=== PATIENT | female | born 1940 | race African-American/Black ===

== ENCOUNTER 2021-03-24 19:20 | Emergency (ER) | payer MEDICAID, SELFPAY ==
[2021-03-24 19:22] VITALS: BP 184/141; PULSE 73; RESP 18; TEMP 36.5; O2SAT 100; BMI 24.7
[2021-03-24 19:27] VITALS: BP 158/89
--- NOTE | 2021-03-24 19:56 | CT_ITS ---
STUDY: CT BRAIN WITHOUT CONTRAST REASON FOR EXAM: Female, 80 years old. Altered mental status TECHNIQUE: Transaxial CT imaging of the brain was performed without administration of intravenous contrast material. Individualized dose optimization techniques were used for this CT. COMPARISON: None FINDINGS: Normal calvarium. Normal soft tissues. Normal size ventricles and extra-axial spaces for the patient''s age. Normal white matter tracts of the cerebral hemispheres. There are small punctate calcifications of the basal ganglia which are seen in the aging brain as a normal variant. Normal brainstem. Normal cerebellum. There is no intracranial hemorrhage. There are no findings of an acute ischemic infarction. Normal visualized paranasal sinuses. ASPECTS 10 CT/Brain/Head without Contrast IMPRESSION: There are no acute intracranial findings. Electronically Signed: Raúl Orlando MD at 20:16 EST ,
--- NOTE | 2021-03-24 19:56 | EKG12_ITS ---
Test Reason : DYSRHYTHMIA Blood Pressure : / mmHG Vent. Rate : 065 BPM Atrial Rate : 065 BPM P-R Int : 136 ms QRS Dur : 086 ms QT Int : 432 ms P-R-T Axes : 058 -27 042 degrees QTc Int : 449 ms Normal sinus rhythm Nonspecific ST abnormality Abnormal ECG Confirmed by NUZHAT DELGADILLO, KRYSTLE ([id number]), field map editor TRINY CHANDLER ([id number]) on 03/25/2021 11:09:33 AM Referred By: HARMAN Confirmed By:KRYSTLE NOLAND MD
--- NOTE | 2021-03-24 19:57 | EX.ED.DYSGE1 ---
HPI History of Present Illness Chief Complaint: Syncope Narrative Narrative: 80-year-old female presenting with an episode of staring. Apparently she was with her family and for about 30 seconds was staring off. After 30 seconds she came back to her baseline and then she was seen staring off again. When she came back to baseline she stated that she had to go to the bathroom and was talking while her legs were sticking out while sitting in a chair. She was told not to get up because she did not have her legs under her. Patient states she remembers this episode. Her family states that she did look like she was sweating after these episodes. They thought that she was having a seizure but they do not describe any seizure-like activity. She does not have a headache currently. She is at her baseline. There is no report of slurred speech, facial droop, inability to move extremities. Prior to leaving the house she was able to get up and ambulate across the room. She has no history of falls or trauma to her head. Per the patient who is a poor informant she states she thinks she had a seizure a long time ago but has not been on medications. Family states they do not know of any medications for seizures. Patient does not report any chest pain or shortness of breath. No nausea or vomiting. No diarrhea. Patient has not had any urinary symptoms. Family states that she does not get urinary tract infections normally. She has not had a fever, chills, cough since she recovered from Covid 2 weeks. [facility] Medical History Rectal bleeding Seizures Home Medications amlodipine 10 mg PO DAILY 02/17/14 [History Last Taken 02/27/14] Bisoprol/Hydrochlorothiazide [Ziac 10/6.25 Mg (Beta Jesika)] 1 tab PO DAILY 02/28/14 [History Last Taken 02/27/14] pantoprazole 40 mg PO DAILY #30 tablet 03/03/14 [Rx Last Taken Unknown] lisinopril 10 mg PO DAILY 03/24/21 [History Last Taken Unknown] Allergy/AdvReac Type Severity Reaction Status Date / Time No Known Allergies Allergy Verified 03/24/21 19:25 Social History Smoking Status: Former smoker ROS ROS ED Constitutional Constitutional ED: Reports sweats; Denies chills or fever(s) Eyes Eyes: Denies blurry vision or diplopia ENT ENT ED: Denies rhinorrhea or sore throat Cardiovascular Cardiovascular: Denies chest pain or palpitations Respiratory/Chest Respiratory/Chest: Denies cough or dyspnea Gastrointestinal Gastrointestinal: Denies abdominal pain, nausea or vomiting Genitourinary Genitourinary ED: Denies dysuria or hematuria Musculoskeletal Musculoskeletal: Denies arthralgias or myalgias Integumentary Denies rash Neurologic Neurologic: Denies headache(s) EXAM Physical Exam Const Vital Signs: 03/24/21 19:22 03/24/21 19:27 03/24/21 19:29 Temperature 97.7 F L Temperature Source Temporal Pulse Rate 73 Respiratory Rate 18 Respiratory Effort Normal Respiratory Pattern Normal Blood Pressure 184/141 H 158/89 H Blood Pressure Mean 155 112 Pulse Ox 100 Oxygen Delivery Method Room Air 03/24/21 22:07 Temperature Temperature Source Pulse Rate 72 Respiratory Rate 19 H Respiratory Effort Respiratory Pattern Blood Pressure 141/72 H Blood Pressure Mean 95 Pulse Ox 99 Oxygen Delivery Method Room Air General Appearance ED: NAD; Negative for pallor HEENT Reports dry mucous membranes Negative for trauma Mouth ED: Yes dry mucous membranes Mouth: dry mucous membranes Eyes PERRL and EOMs intact bilaterally General Eye ED: Negative for pale conjunctiva or scleral icterus Chest Wall inspection of chest normal and palpation of chest normal Resp normal respiratory effort and clear to auscultation bilaterally Cardio regular rate and regular rhythm GI normal to inspection, nondistended, normoactive bowel sounds Neuro oriented x3, CN's II-XII intact bilaterally and no sensory deficits noted Sensorium / Orientation: alert Motor Exam: strength 5/5 throughout Psych mental status grossly normal Skin no rashes or lesions noted General Skin Exam: Negative for jaundice or pallor MDM MDM MDM Narrative Medical decision making narrative: Patient presenting with a couple of episodes of confusion while at the dinner table. From the description it does not sound like a seizure, and she has no symptoms of stroke. She is alert and oriented in the emergency room. Her family thinks she is at baseline. Patient reports no pain anywhere. She does look a little bit dehydrated. Family does report that the whole household recently got over Covid. They reported that she was eating and drinking normally. EKG was performed on arrival which shows a sinus rhythm with a ventricular to 65 bpm without sign of ischemic change or dysrhythmia. CBC shows that she is leukopenic and lymphopenic. This is likely due to her recent Covid exposure. Her hemoglobin is 10.1 and on 03/03/2021 this was 10.2. Platelets are normal at 265. Creatinine is elevated at 1.6 today and the GFR is 38. On 03/04/2021 her creatinine was 1.08 and her GFR was 59. Patient was given a liter of normal saline. CT of the brain is negative for acute intercranial process. I discussed the case with Dr. Singletary who is on-call for Dr. Suggs to discuss her elevated blood pressure at 158/89 as well as her blood pressure medications to see if he wanted to change these why she has an BRENDA. He recommended to continuing them and to have her hydrate well. She will follow-up in office for repeat BMP. This was discussed with the family and they are comfortable with this. Patient was ambulated in the ED and was stable. Impression: 1. Dehydration 2. Acute kidney injury 3. Near syncope Lab Data Attestation: I reviewed the patient's lab results. Labs: Laboratory Results - last 24 hr 03/24/21 03/24/21 03/24/21 19:25 19:25 21:20 WBC 4.1 L RBC 4.50 Hgb 10.1 L Hct 33.0 L MCV 73.3 L MCH 22.4 L MCHC 30.6 L RDW Std Deviation 44.5 H RDW Coeff of Shelly 16.7 H Plt Count 265 MPV 11.3 Immature Gran % (Auto) 0.200 Neut % (Auto) 43.5 L Lymph % (Auto) 46.8 H [place] % (Auto) 6.8 Eos % (Auto) 2.2 Baso % (Auto) 0.5 Absolute Neuts (auto) 1.8 L Absolute Lymphs (auto) 1.92 Nucleated RBC % 0 Sodium 137 Potassium 4.1 Chloride 108 H Carbon Dioxide 23.0 Anion Gap 6 BUN 46 H Creatinine 1.68 H Estim Creat Clear Calc 21.48 Est GFR (MDRD) Af Amer 38 L Est GFR (MDRD) Non-Af 31 L BUN/Creatinine Ratio 27.4 H Glucose 145 H Calcium 8.6 Total Bilirubin 0.20 AST 17 ALT 16 Alkaline Phosphatase 124 H Troponin I High Sens 12 Total Protein 8.2 Albumin 3.3 Globulin 4.9 H Albumin/Globulin Ratio 0.7 L Urine Color Yellow Urine Clarity Clear Urine pH 5.0 Ur Specific [place] 1.020 Urine Protein 30 H Urine Glucose (UA) Normal Urine Ketones Negative Urine Occult Blood 10 H Urine Nitrite Negative Urine Bilirubin Negative Urine Urobilinogen Normal Ur Leukocyte Esterase 25 H Urine RBC 0-5 SEEN Urine WBC 0 SEEN Ur Squamous Epith Cells 0 SEEN Urine Bacteria 1+ Urine Mucus 0 SEEN Radiography Diagnostic Testing: Clinical Impression(s) from Imaging Studies Brain CT 03/24/21 19:56 IMPRESSION: There are no acute intracranial findings. Electronically Signed: Raúl Orlando MD at 20:16 EST , Chest X-Ray 03/24/21 20:07 IMPRESSION: There are no acute findings. Electronically Signed: Raúl Orlando MD at 20:16 EST , Discharge Plan Triage Chief Complaint: Syncope ED Provider: Thomas Rosa Dx/Rx/DC Orders Instructions: ED Dehydration (Adult), ED Near-Fainting, Uncertain Cause Prescriptions: No Action amlodipine 10 MG tablet 10 mg PO DAILY RF: 0 Bisoprol/Hydrochlorothiazide [Ziac 10/6.25 Mg (Beta Jesika)] 1 TAB tablet 1 tab PO DAILY RF: 0 pantoprazole 40 MG tablet 40 mg PO DAILY Qty: 30 RF: 0 lisinopril 10 mg tablet 10 mg PO DAILY RF: 0 Primary Care Provider: Damir Suggs Referrals: Damir Suggs MD [Primary Care Provider] - Disposition Disposition: Home, Self Care
--- NOTE | 2021-03-24 20:07 | RAD_ITS ---
STUDY: XR Chest 1 View 03/24/2021 8:00 PM REASON FOR EXAM: Female, 80 years old. CHEST PAIN Altered mental status COMPARISON: None TECHNIQUE: XR Chest 1 View FINDINGS: There is no demonstrated pleural abnormality. Enlarged heart size. Normal mediastinum. Normal braydon. Prominent appearing increased interstitial lung markings. Normal visualized pulmonary arteries. There is atherosclerotic calcification of the aortic arch with tortuosity. There are diffuse degenerative changes of the visualized thoracic spine. There is degenerative osteoarthritis of the bilateral shoulders. There is no demonstrated abnormality of the visualized soft tissue structures of the upper abdomen. RAD/Chest 1 View (Portable) IMPRESSION: There are no acute findings. Electronically Signed: Raúl Orlando MD at 20:16 EST ,
[2021-03-24 20:20] LABS: Absolute Lymphocyte Count 1.92 X10^3/uL (0.83-4.51); Absolute Neutrophil Count 1.8 X10^3/uL (2.0-7.7); Basophil# 0.02 X10^3/uL; Basophil% 0.5 % (0-1); Eosinophil# 0.09 X10^3/uL; Eosinophils% 2.2 % (0-5); Hemoglobin 10.1 g/dL (12.0-15.0); Lymphocyte # 1.92 X10^3/ul (0.83-4.51); Lymphocyte % 46.8 % (19-41); Mean Corp Hgb Conc 30.6 g/dL (32-36); Mean Corpuscular Hgb 22.4 pg (27.0-32.0); Mean Corpuscular Volume 73.3 fL (81-99); Mean Platelet Vol. 11.3 fl (6.2-12.0); Monocyte# 0.28 X10^3/uL; Monocyte% 6.8 % (0-10); NRBC Flagged by Analyzer 0 % (0-5); Neutrophil # 1.78 X10^3/uL (2.7-7.7); Neutrophil % 43.5 % (47-70); Platelet Count 265 K/mm3 (150-450); RBC Distribution Width CV 16.7 % (11.6-14.6); RBC Distribution Width SD 44.5 fl (35.1-43.9); White Blood Count 4.1 K/mm3 (4.4-11.0)
[2021-03-24 21:04] LABS: ALB/GLOB Ratio 0.7 RATIO (0.9-2.4); AST(SGOT) 17 U/L (15-37); Alanine Aminotransfer ALT/SGPT 16 U/L (13-56); Albumin, Serum 3.3 g/dL (3.2-5.0); Alkaline Phosphatase 124 U/L (45-117); Anion Gap 6 (5-15); BUN 46 mg/dL (7-18); BUN/Creat Ratio 27.4 RATIO (10-20); Calcium,Total 8.6 mg/dL (8.5-10.1); Chloride 108 mmol/L (98-107); Creatinine, Serum 1.68 mg/dL (0.55-1.02); EST Glomerular Filtration Rate 31 mL/min (>60); Est Glom Filt Rate - Afr Amer 38 mL/min (>60); Estimated Creatinine Clearance 21.48 ml/min; Globulin 4.9 g/dL (2.2-4.2); Glucose 145 mg/dL (74-106); Potassium 4.1 mmol/L (3.5-5.1); Protein, Total 8.2 g/dL (6.4-8.2); Sodium Level 137 mmol/L (136-145); Troponin-I HS 12 pg/mL (3.0-54.0)
[2021-03-24] MEDS: 0.9% Normal Saline 1,000 ML 999 ML IV (21:17)
[2021-03-24 21:29] LABS: Mucous, Urine 0 SEEN /hpf (<or=2+); Squamous Epithelial Cells - UA 0 SEEN /hpf (5-10); White Blood Cells 0 SEEN /hpf (0-5)
[2021-03-24 21:34] LABS: Color, Urine Yellow (Yellow); Glucose, Dipstick Normal (Normal); Ketone-Dipstick Negative (Negative); Leukocyte Esterase-Dipstick 25 /ul (Negative); Nitrite-Dipstick Negative (Negative); Occult Blood-Urine 10 /ul (Negative); Protein-Dipstick 30 mg/dl (Negative); Urine Bilirubin Dipstick Negative (Negative); Urine Clarity Clear (Clear); Urine Urobilinogen Normal (Normal)
[2021-03-24 21:42] LABS: Bacteria 1+ /hpf (None Seen); Red Blood Cells-Urine 0-5 SEEN /hpf (0-5)
[2021-03-24 22:07] VITALS: BP 141/72; PULSE 72; RESP 19; O2SAT 99
== END 2021-03-24 23:37 | disposition home or self-care (01) ==
PROVIDERS: Emergency Provider Student in an Organized Health Care Education/Training Program; PCP Family Medicine; Visit Provider Student in an Organized Health Care Education/Training Program
DX: N17.9 Acute kidney failure, unspecified (principal); R55 Syncope and collapse; E86.0 Dehydration; Z87.891 Personal history of nicotine dependence; Z20.822 Contact with and (suspected) exposure to COVID-19; Z79.899 Other long term (current) drug therapy; Z86.16 Personal history of COVID-19
CPT/HCPCS: 70450; 71045; 80053; 81001; 84484; 85025; 87086; 87088; 93005; 96360; 99285; J7030; A4216

== ENCOUNTER 2024-05-19 13:52 | Emergency (ER) | payer MEDICAID, SELFPAY ==
[2024-05-19] VITALS (11 sets, daily range): BP systolic 156–234; BP diastolic 86–137; PULSE 57–84; RESP 16–23; TEMP 36.6; O2SAT 99–100; BMI 22.2
--- NOTE | 2024-05-19 14:13 | RAD_ITS ---
PROCEDURE: CHEST 1 VIEW (PORTABLE) 05/19/2024 REASON FOR EXAM: HYPERTENSION TECHNIQUE: Frontal view of the chest. COMPARISON: None. FINDINGS: Hardware: None. Heart: Mildly enlarged. Lungs: Clear. Bones: Unremarkable. Other: RAD/Chest 1 View (Portable) IMPRESSION: No acute process detected. Reading [facility]
--- NOTE | 2024-05-19 14:13 | CT_ITS ---
PROCEDURE: BRAIN/HEAD WITHOUT CONTRAST 05/19/2024 REASON FOR EXAM: HYPERTENSIVE URGENCY TECHNIQUE: Head CT without intravenous contrast. Coronal and Sagittal reconstruction series were provided. One or more dose reduction techniques were used (e.g., Automated exposure control, adjustment of the mA and/or kV according to patient size, use of iterative reconstruction technique. RADIATION DOSE SUMMARY: CTDlvol: 44.99 mGy DLP: 796.11 mGycm COMPARISON: No relevant prior. FINDINGS: Cerebrum: Physiologic basal ganglial calcifications. No intraparenchymal hemorrhage. No abnormal areas of encephalomalacia. No mass effect or midline shift. Jaramillo-white matter differentiation is normal. Ventricles and cisterns: Appropriate size for patient's age. Extra-axial fluid: Unremarkable. Posterior fossa: Unremarkable cerebellum. No abnormalities involving the brainstem. Paranasal sinuses: Moderate to marked mucoperiosteal thickening involving the right maxillary sinus. Vasculature: Unremarkable. Mastoid air cells: Normal. Calvarium: Unremarkable. Soft tissues: Unremarkable. CT/Brain/Head without Contrast IMPRESSION: 1. No acute intracranial abnormalities. 2. Physiologic basal ganglia calcifications. 3. Right maxillary sinus inflammation. Reading Location: [place] [id number]
--- NOTE | 2024-05-19 14:14 | EKG12_ITS ---
Test Reason : Blood Pressure : */* mmHG Vent. Rate : 65 BPM Atrial Rate : 65 BPM P-R Int : 112 ms QRS Dur : 156 ms QT Int : 480 ms P-R-T Axes : 62 -70 27 degrees QTcB Int : 499 ms Normal sinus rhythm Biatrial enlargement Right bundle branch block Left anterior fascicular block Bifascicular block Minimal voltage criteria for LVH, may be normal variant ( R in aVL ) Septal infarct , age undetermined Abnormal ECG Confirmed by RAFAEL DELGADILLO, RACHEL ([id number]), editor farm journal TRINY CHANDLER ([id number]) on 05/20/2024 8:08:57 AM Referred By: MAYRA Confirmed By: RACHEL HALL MD
--- NOTE | 2024-05-19 14:15 | EX.ED.DYSGE1 ---
HPI History of Present Illness Chief Complaint: Hypertension Informant: patient and friend Narrative Narrative: 83-year-old female presenting to the emergency room with the chief complaint of hypertension. Familywho accompanies her states that she has been taking her blood pressure every few days and has noticed it has been around the 180 vero. Patient states that she is only taking amlodipine and believes it is 20 mg a day. She had a primary care appointment today was referred to the emergency because of hypertension. She denies any symptoms related to her hypertension. She denies headache chest pain vision changes shortness of breath leg swelling change in urination. There is reported by family that the son who is one of her primary caregivers recently and the sister is now assuming the role of caring for her. [facility] Medical History (Updated 05/19/24 @ 17:[address] Marvin Walker DO) Hypertension Rectal bleeding Seizures Home Medications ?Medication ?Instructions ?Recorded ?Last Taken ?Type pantoprazole 40 mg tablet,delayed 40 mg PO DAILY ##30 03/03/14 Unknown Rx release lisinopril 40 mg tablet 40 mg PO DAILY 05/19/24 Unknown History Allergy/AdvReac Type Severity Reaction Status Date / Time No Known Allergies Allergy Verified 05/19/24 13:55 Social History Smoking Status: Former smoker ROS ROS ED Constitutional Constitutional ED: Denies chills, fever(s) or weight loss Eyes Eyes: Denies change in vision or diplopia ENT ENT ED: Denies ear pain, rhinorrhea or sore throat Cardiovascular Cardiovascular: Denies chest pain, orthopnea, palpitations or racing heartbeat Respiratory/Chest Respiratory/Chest: Denies cough, dyspnea or orthopnea Gastrointestinal Gastrointestinal: Denies abdominal pain, diarrhea, nausea or vomiting Genitourinary Genitourinary ED: Denies dysuria, hematuria or urinary frequency Musculoskeletal Musculoskeletal: Denies arthralgias, back pain or myalgias Integumentary Denies abscess or rash Neurologic Neurologic: Denies headache(s), paresthesias or weakness Psychiatric Psychiatric: Denies anxiety, depression, suicidal ideation or suicidal thoughts Endocrine Endocrinology: Denies polydipsia, polyphagia or polyuria Allergic/Immunologic Allergic/Immunologic ED: Denies mouth swelling, tongue swelling or urticaria EXAM Physical Exam Const Vital Signs: 05/19/24 13:53 05/19/24 14:29 05/19/24 14:31 Temperature 97.8 F Temperature Source Temporal Pulse Rate 76 Respiratory Rate 18 Respiratory Effort Normal Non-Labored Respiratory Pattern Normal Blood Pressure 234/117 H Blood Pressure Mean 156 Pulse Ox 100 99 Oxygen Delivery Method Room Air 05/19/24 14:45 05/19/24 15:00 05/19/24 15:05 Temperature Temperature Source Pulse Rate 84 69 Respiratory Rate 21 H 16 Respiratory Effort Respiratory Pattern Blood Pressure 156/137 H Blood Pressure Mean 145 Pulse Ox 99 Oxygen Delivery Method 05/19/24 15:15 05/19/24 15:30 05/19/24 15:37 Temperature Temperature Source Pulse Rate 64 65 66 Respiratory Rate 16 19 H 22 H Respiratory Effort Respiratory Pattern Blood Pressure 184/90 H Blood Pressure Mean 115 Pulse Ox 99 99 100 Oxygen Delivery Method Room Air 05/19/24 15:46 05/19/24 16:00 05/19/24 16:15 Temperature Temperature Source Pulse Rate 79 57 L 59 L Respiratory Rate 23 H 18 18 Respiratory Effort Respiratory Pattern Blood Pressure 188/86 H Blood Pressure Mean 116 Pulse Ox 100 100 99 Oxygen Delivery Method Room Air Positive well nourished and well developed General Appearance ED: well developed and NAD HEENT Reports normocephalic, head/scalp atraumatic and moist mucous membranes Eyes PERRL and EOMs intact bilaterally Neck no lymphadenopathy, supple and no JVD Resp normal respiratory effort and clear to auscultation bilaterally Cardio regular rate, regular rhythm and no murmurs GI normal to inspection, nondistended, normoactive bowel sounds and non-tender Palpation: soft Back/Spine no CVA tenderness and normal ROM Extremity normal to inspection General Extremety ED: Negative for edema General Extremity: Negative for edema Neuro oriented x3 and CN's II-XII intact bilaterally Neuro Narrative: NIH 0 Sensorium / Orientation: alert Motor Exam: strength 5/5 throughout Psych mental status grossly normal Mood & Affect: Negative for depressed or tearful Skin no rashes or lesions noted and no wounds MDM MDM MDM Narrative Medical decision making narrative: Patient presenting with asymptomatic hypertension. Differential diagnosis would include medical noncompliance renal disease coronary strain congestive heart failure intracranial hemorrhage/pressure I discussed the case with social work and asked them to come by to visit with the patient and her sister. My independent interpretation the chest x-ray is no acute process. CT of the brain was obtained and read by radiology reviewed by myself. This does not demonstrate acute findings. Patient's blood work is obtained. 2 sets of cardiac enzymes rule out for acute coronary syndrome. There is noted to be some increased protein in the urine. Patient received a dose of lisinopril as well as clonidine. We had an appropriate decrease in blood pressure currently 183/86. Patient was given instructions to hop picker her medications at [facility]. Her sister who is helping care for her is able to pick them up tomorrow. History & Record Review Discussion w/independent historian: Patient and Family Lab Data Attestation: I reviewed the patient's lab results. Labs: Laboratory Results - last 24 hr 05/19/24 05/19/24 05/19/24 14:25 14:45 16:25 WBC 4.9 RBC 4.29 Hgb 9.8 L Hct 31.8 L MCV 74.1 L MCH 22.8 L MCHC 30.8 L RDW Std Deviation 44.2 H RDW Coeff of Shelly 16.6 H Plt Count 249 MPV 10.8 Immature Gran % (Auto) 0.200 Neut % (Auto) 56.7 Lymph % (Auto) 35.8 [place] % (Auto) 5.1 Eos % (Auto) 1.8 Baso % (Auto) 0.4 Absolute Neuts (auto) 2.8 Absolute Lymphs (auto) 1.77 Nucleated RBC % 0 Sodium 139 Potassium 4.1 Chloride 108 Carbon Dioxide 19.8 L Anion Gap 12 BUN 28 H Creatinine 1.35 H Est GFR (MDRD) Non-Af 39 L BUN/Creatinine Ratio 20.7 H Glucose 85 Calcium 9.0 Total Bilirubin 0.34 AST 22 ALT 15 Alkaline Phosphatase 90 Troponin T High Sens 31 H Troponin T Hi Sens 2 Hr 29 H Total Protein 7.3 Albumin 3.9 Globulin 3.4 Albumin/Globulin Ratio 1.1 Urine Color Yellow Urine Clarity Clear Urine pH 6.0 Ur Specific [place] 1.010 Urine Protein 100 H Urine Glucose (UA) Normal Urine Ketones Negative Urine Occult Blood Negative Urine Nitrite Negative Urine Bilirubin Negative Urine Urobilinogen Normal Ur Leukocyte Esterase Negative Urine RBC 0 SEEN Urine WBC 0 SEEN Ur Squamous Epith Cells 0 SEEN Urine Bacteria 0 SEEN Urine Mucus 0 SEEN Radiography Diagnostic Testing: Clinical Impression(s) from Imaging Studies Brain CT 05/19/24 14:13 IMPRESSION: 1. No acute intracranial abnormalities. 2. Physiologic basal ganglia calcifications. 3. Right maxillary sinus inflammation. Reading Location: [facility] Chest X-Ray 05/19/24 14:13 IMPRESSION: No acute process detected. Reading Location: [facility] EKG Initial EKG: Attestation: I personally reviewed and interpreted this EKG as follows: Comments: Normal sinus rhythm ventricular to 65 bpm. Management Discussion w/another healthcare provider: target worker/Case management (Liane) Discharge Plan Triage Chief Complaint: Hypertension ED Provider: Marvin Walker Dx/Rx/DC Orders Clinical Impression: Hypertensive urgency Instructions: ED High Blood Pressure Hypertension Prescriptions: No Action pantoprazole 40 MG tablet 40 mg PO DAILY Qty: 30 0RF Patient Comments: ACID REFLUX/ULCERS lisinopril 40 mg tablet 40 mg PO DAILY Primary Care Provider: Damir Suggs Referrals: Damir Suggs MD [Primary Care Provider] - [facility] appointment Activity Restrictions/Additional Instructions: Your medications are available for pickup at [facility] [address], [place] [address]. Print Language: Lithuanian Disposition Disposition: Home, Self Care
[2024-05-19 14:35] LABS: Absolute Lymphocyte Count 1.77 X10^3/uL (0.83-4.51); Absolute Neutrophil Count 2.8 X10^3/uL (2.0-7.7); Basophil# 0.02 X10^3/uL; Basophil% 0.4 % (0-1); Eosinophil# 0.09 X10^3/uL; Eosinophils% 1.8 % (0-5); Hematocrit 31.8 % (37-47); Hemoglobin 9.8 g/dL (12.0-15.0); Lymphocyte # 1.77 X10^3/ul (0.83-4.51); Lymphocyte % 35.8 % (19-41); Mean Corp Hgb Conc 30.8 g/dL (32-36); Mean Corpuscular Hgb 22.8 pg (27.0-32.0); Mean Corpuscular Volume 74.1 fL (81-99); Mean Platelet Vol. 10.8 fl (6.2-12.0); Monocyte# 0.25 X10^3/uL; Monocyte% 5.1 % (0-10); NRBC Flagged by Analyzer 0 % (0-5); Neutrophil % 56.7 % (47-70); Platelet Count 249 K/mm3 (150-450); RBC Distribution Width CV 16.6 % (11.6-14.6); RBC Distribution Width SD 44.2 fl (35.1-43.9); Red Blood Count 4.29 M/mm3 (4.2-5.4); White Blood Count 4.9 K/mm3 (4.4-11.0)
[2024-05-19] MEDS: Lisinopril 40 MG Tablet PO (14:38)
[2024-05-19] MEDS: cloNIDine HCl 0.1 MG Tablet PO (14:38)
[2024-05-19 14:55] LABS: Bacteria 0 SEEN /hpf (None Seen); Mucous, Urine 0 SEEN /hpf (<or=2+); Red Blood Cells-Urine 0 SEEN /hpf (0-5); Squamous Epithelial Cells - UA 0 SEEN /hpf (5-10); White Blood Cells 0 SEEN /hpf (0-5)
[2024-05-19 14:57] LABS: ALB/GLOB Ratio 1.1 RATIO (0.9-2.4); AST(SGOT) 22 U/L (<=31); Alanine Aminotransfer ALT/SGPT 15 U/L (<=34); Albumin, Serum 3.9 g/dL (3.4-4.8); Alkaline Phosphatase 90 U/L (35-104); Anion Gap 12 (5-15); BUN 28 mg/dL (4-19); BUN/Creat Ratio 20.7 RATIO (10-20); Carbon Dioxide 19.8 mmol/L (21.0-32.0); Chloride 108 mmol/L (98-108); Creatinine, Serum 1.35 mg/dL (0.70-1.20); EST Glomerular Filtration Rate 39 (>60); Globulin 3.4 g/dL (2.2-4.2); Glucose 85 mg/dL (70-99); Potassium 4.1 mmol/L (3.3-5.1); Protein, Total 7.3 g/dL (5.9-8.4); Sodium Level 139 mmol/L (133-145); Total Bilirubin 0.34 mg/dL (0.00-1.30)
[2024-05-19 15:08] LABS: Color, Urine Yellow (Yellow); Glucose, Dipstick Normal (Normal); Ketone-Dipstick Negative (Negative); Leukocyte Esterase-Dipstick Negative /ul (Negative); Nitrite-Dipstick Negative (Negative); Occult Blood-Urine Negative /ul (Negative); Protein-Dipstick 100 mg/dl (Negative); Urine Bilirubin Dipstick Negative (Negative); Urine Clarity Clear (Clear); Urine Urobilinogen Normal (Normal)
[2024-05-19 15:18] LABS: Troponin T High Sensitivity 31 ng/L (<=14)
[2024-05-19 16:58] LABS: Troponin T High Sens 2 HR 29 ng/L (<=14)
--- NOTE | 2024-05-19 18:57 | CM.ED ---
Social Work SW met with patient and patients sister. Sister states that patient had been living with her adult son, however he several weeks ago. Since then, patient moved in with sister. Sister reports to not knowing much about her sister, but is trying to make sure she has the care she needs. Sister states that she has taken her to a doctors visit last week but is uncertain if she normally sees any other physicians. Sister also stated that patient has some mental disorders, maybe schizophrenia or something that prohibits her from being able to care for herself. SW encouraged sister to call patients primary care to discuss patients care. SW also gave sister resources for counseling and psychiatry services, information for [facility] day program, and made a [facility] referral. Patients sister denied needing any additional resources. Liane Godinez, [employer], MANAGER [employer]ENTER
== END 2024-05-19 17:26 | disposition home or self-care (01) ==
PROVIDERS: Emergency Provider Emergency Medicine; PCP Family Medicine; Visit Provider Emergency Medicine
DX: I16.0 Hypertensive urgency (principal); I10 Essential (primary) hypertension; Z87.891 Personal history of nicotine dependence
CPT/HCPCS: 70450; 71045; 80053; 81001; 84484; 85025; 93005; 99283; A4216